=== PATIENT | male | born 1980 | race Caucasian/White ===

== ENCOUNTER 2017-07-14 17:54 | Emergency (ER) | payer BC, OTHER ==
[2017-07-14 18:30] VITALS: BP 137/71
--- NOTE | 2017-07-14 18:45 | UC ---
Skin Complaint HPI - HPI Summary HPI Summary: Pt reports that he cut his finger ~ 5 days ago and noticed that over the last 24 hours that it has become increasingly red tender and had purulent drainage this morning. - History of Current Complaint Chief Complaint: [facility] Time Seen by Provider: 07/14/17 18:34 Stated Complaint: LEFT HAND FINGER COMPLAINT Hx Obtained From: Patient Onset/Duration: Gradual Onset, Lasting Days Skin Exposure Onset/Duration: Hours Ago - 24 Timing: Constant Onset Severity: Mild Current Severity: Mild Location: Discrete - right 4th finger Character: Swelling, Pain, Redness Aggravating Factor(s): Touch Associated Signs & Symptoms: Positive: Drainage, Tenderness Related History: Trauma - Allergy/Home Medications Allergies/Adverse Reactions: Allergies Allergy/AdvReac Type Severity Reaction Status Date / Time No Known Allergies Allergy Verified 07/14/17 18:30 Review of Systems Constitutional: Negative Skin: Other - erythema, tenderness, pururlent drainage Eyes: Negative ENT: Negative Respiratory: Negative Cardiovascular: Negative Gastrointestinal: Negative Genitourinary: Negative Motor: Negative Neurovascular: Negative Musculoskeletal: Negative Neurological: Negative Psychological: Negative Is Patient Immunocompromised?: No All Other Systems Reviewed And Are Negative: Yes PMH/Surg Hx/FS Hx/Imm Hx Previously Healthy: Yes - Surgical History Surgical History: None - Family History Known Family History: Positive: Cardiac Disease - Social History Occupation: Employed Full-time Lives: With Family Alcohol Use: Occasionally Substance Use Type: None Smoking Status (MU): Never Smoked Tobacco Have You Smoked in the Last Year: No - Immunization History Most Recent Tetanus Shot: 2013 Physical Exam Triage Information Reviewed: Yes Appearance: Well-Appearing Vital Signs: Initial Vital Signs Temp 97.9 F 07/14/17 18:25 Pulse 55 07/14/17 18:25 Resp 16 07/14/17 18:25 BP 137/71 07/14/17 18:25 Pulse Ox 100 07/14/17 18:25 Vital Signs Reviewed: Yes Eye Exam: Normal ENT Exam: Normal Neck exam: Normal Respiratory Exam: Normal Respiratory: Positive: No respiratory distress Musculoskeletal Exam: Other Musculoskeletal: Positive: Edema @ - right ring finger Neurological Exam: Normal Psychological Exam: Normal Skin Exam: Other - infected right 4th finger MIP joint, Course/Dx - Differential Diagnoses - Skin Complaint Differential Diagnoses: Abscess, Cellulitis - Diagnoses Provider Diagnoses: INfected wound right 4th finger Discharge - Discharge Plan Condition: Stable Disposition: HOME Prescriptions: Cephalexin CAP* [Keflex 500 CAP*] 500 mg PO Q12H #14 cap Patient Education Materials: Acute Wound Care (ED), Abscess (ED) Referrals: Non Staff,Doctor [Primary Care Provider] - If Needed
== END 2017-07-14 19:00 | disposition home or self-care (01) ==
LOC: UCCORT 17:54
DX: S61.214A Laceration without foreign body of right ring finger without damage to nail, initial encounter (principal); L08.9 Local infection of the skin and subcutaneous tissue, unspecified; W45.8XXA Other foreign body or object entering through skin, initial encounter; Y93.9 Activity, unspecified; Y92.9 Unspecified place or not applicable; Y99.9 Unspecified external cause status
CPT/HCPCS: 99202; G0463